=== PATIENT | female | born 1970 | race African-American/Black ===

== ENCOUNTER 2019-01-17 17:27 | Inpatient (IN) | payer OTHER, MEDICAID ==
[~2019-01-17] VITALS: Ht 160 cm; Wt 65.3 kg
[2019-01-17 17:27] VITALS: BP_SYST 156
--- NOTE | 2019-01-17 17:27 | NUR ---
BROUGHT IN BY [facility], PLACED IN BED #8 AND TRIAGED. REPORT GIVEN TO ESTIVEN
--- NOTE | 2019-01-17 17:38 | NUR ---
pt arrives from [facility] via [facility]. AAO x 3. Pt has c/o right sided CP. Barrie any SOB. EKG done and given to MD. Will continue to monitor.
--- NOTE | 2019-01-17 17:42 | NUR ---
Rosalie britton in ED - 01/17/19 at 1923 by SDNNICKI BECKY Turk at bedside examining patient.
--- NOTE | 2019-01-17 17:43 | NUR ---
BECKY Turk at bedside examining patient.
[2019-01-17] MEDS ORDERED: ASPIRIN 81 MG TAB.CHEW PO ONE (17:45)
--- NOTE | 2019-01-17 18:05 | NUR ---
# 20 gauge angiocath placed to the right breast. Use of asceptic technique. Opsite placed over site. Blood return noted. Blood for lab drawn from site. Flushed with 10 cc of normal saline. No evidence of infiltration noted. Patient tolerated well.
[2019-01-17 18:30] LABS: BASOPHILS # (AUTO) 0.1 K/uL (0.0-0.2); BASOPHILS % (AUTO) 0.9 % (0.0-2.0); EOSINOPHILS # (AUTO) 0.3 K/uL (0.0-0.4); EOSINOPHILS % (AUTO) 2.9 % (0.0-4.0); HEMATOCRIT 37.6 % (36-48); LYMPHOCYTES # (AUTO) 1.9 K/uL (1.0-5.5); LYMPHOCYTES % (AUTO) 20.3 % (20.5-51.5); MEAN CORPUSCULAR HEMOGLOBIN 29 pg (27-31); MEAN CORPUSCULAR HGB CONC 32 % (32-36); MEAN CORPUSCULAR VOLUME 89 fL (79.0-98.0); MONOCYTES # (AUTO) 0.7 K/uL (0.0-1.0); MONOCYTES % (AUTO) 7.9 % (1.7-9.3); NEUTROPHILS # (AUTO) 6.4 K/uL (1.8-7.7); PLATELET COUNT (AUTO) 361 K/uL (130-430); RED BLOOD CELL COUNT(AUTO) 4.22 MIL/uL (4.2-6.2); RED CELL DISTRIBUTION WIDTH 16.8 % (9.0-15.0); WHITE BLOOD COUNT (AUTO) 9.5 K/uL (4.8-10.8)
[2019-01-17 18:36] LABS: ANION GAP 13 (5-15); CHLORIDE 99 mmol/L (98-107); CREATININE 4.89 mg/dL (0.55-1.30); GLUCOSE 218 mg/dL (70-99); POTASSIUM 3.8 mmol/L (3.5-5.1); SODIUM SERUM 138 mmol/L (136-145); UREA NITROGEN, BLOOD 52 mg/dL (8-21)
[2019-01-17 18:42] LABS: GFR AFRICAN AMERICAN 12 mL/min (>90)
[2019-01-17 18:45] LABS: ALANINE AMINOTRANSFERASE 13 U/L (12-78); ALBUMIN 3.4 g/dL (3.4-4.8); ASPARTATE AMINOTRANSFERASE 10 U/L (10-37); TOTAL BILIRUBIN 0.2 mg/dL (0.0-1.0)
--- NOTE | 2019-01-17 18:49 | NUR ---
medicated the pt with Aspirin 325mg. Will reassess.
--- NOTE | 2019-01-17 19:15 | NUR ---
Care endorsed to Isai Childress. Pt is in stable condition.
[2019-01-17] MEDS ORDERED: MOM PO (19:37)
[2019-01-17] MEDS ORDERED: SENN8.6T19 PO (19:37)
[2019-01-17] MEDS ORDERED: RENA-VITE RX PO (19:37)
[2019-01-17] MEDS ORDERED: BISA-79 PO (19:37)
[2019-01-17] MEDS ORDERED: HYDR-4272 PO (19:37)
[2019-01-17] MEDS ORDERED: IPRA3AMP9 INH (19:37)
[2019-01-17] MEDS ORDERED: LEVE250T2 PO (19:37)
[2019-01-17] MEDS ORDERED: POLY119P15 PO (19:37)
[2019-01-17] MEDS ORDERED: APIX5TAB PO (19:37)
[2019-01-17] MEDS ORDERED: LIDOCAINE TP (19:37)
[2019-01-17] MEDS ORDERED: SSNOVOLOG SUBCUT ×2 (19:37)
[2019-01-17] MEDS ORDERED: DOCU-144 PO (19:37)
[2019-01-17] MEDS ORDERED: PRO40 PO (19:37)
[2019-01-17] MEDS ORDERED: AMLO5TAB4 PO (19:37)
[2019-01-17] MEDS ORDERED: ACET-2165 PO (19:37)
[2019-01-17] MEDS ORDERED: INSU100V11 SQ (19:37)
--- NOTE | 2019-01-17 19:38 | NUR ---
Medication reconciliation completed with information provided by [facility]. Any prior medication reconciliation on file was reviewed and corrected.
--- NOTE | 2019-01-17 19:44 | NUR ---
ER Dr. Shea at bedside examining patient.
--- NOTE | 2019-01-17 20:06 | NUR ---
PT mother, Bee, would like to be called for any change in pt status.
--- NOTE | 2019-01-17 20:42 | NUR ---
Patient will be admitted to care of Dr. Xavier. Admitted to telemetry unit. Will go to room 132. Belongings list completed. Summary report printed. Report will be given at bedside.
--- NOTE | 2019-01-17 21:21 | NUR ---
Transfer to 103A via ACLS protocol. Licensed nurse present. IV present no signs or symptoms of infiltration.
--- NOTE | 2019-01-17 21:23 | NUR ---
ADMISSION NOTE Received patient from ER via gurney. Patient admitted with diagnosis of CP r/o SC. Patient is awake, alert, oriented X 2. Patient oriented to hospital room, call light, toileting, pain management and safety-teach back done. Patient informed that KEYONA Lau will be primary nurse and that their room number is 103A. Personal belongings checked and Belongings List documented. Call light within reach.
[2019-01-17] MEDS ORDERED: INSULIN ASPART 100 UNITS/ML, 10 ML VIAL (NovoLOG) SUBCUT PRN (21:45)
[2019-01-17] MEDS ORDERED: ACETAMINOPHEN 325 MG TABLET PO PRN ×2 (21:45)
[2019-01-17] MEDS ORDERED: IPRATROPIUM/ALBUTEROL SULFATE 3 ML AMPUL.NEB (DUONEB) INH PRN (21:45)
[2019-01-17] MEDS ORDERED: MILK OF MAGNESIA 30 ML UDC PO PRN (21:45)
--- NOTE | 2019-01-17 22:19 | NUR ---
Dr Xavier in with orders and carried out, fixed and bed and made comfortable.
[2019-01-17 22:23] VITALS: BP_SYST 143
[2019-01-17 22:25] VITALS: BP_SYST 152
[2019-01-17] MEDS ORDERED: levETIRAcetam 500 MG TABLET PO SCH (22:30)
[2019-01-17] MEDS ORDERED: APIXABAN 2.5 MG TABLET PO SCH (23:00)
[2019-01-18 00:45] VITALS: BP_SYST 159
--- NOTE | 2019-01-18 02:16 | NUR ---
CONSULT: CONSULT CALLED FOR DR. MENDIOLA I SPOKE WITH ANTWAN BURNS REASON FOR CONSULT: CHEST PAIN REQUESTING CONSULT: DR. KOO PRODUCTION MAINTENANCE MECHANIC PHONE NUMBER: [phone]
--- NOTE | 2019-01-18 02:18 | NUR ---
CONSULT: CONSULT CALLED FOR FLAKO VALDEZ I SPOKE WITH ANTWAN BURNS REASON FOR CONSULT: ESRD REQUESTING CONSULT: DR. KOO RETURNED MATERIALS INSPECTOR PHONE NUMBER: [phone]
[2019-01-18 06:21] LABS: BASOPHILS # (AUTO) 0.1 K/uL (0.0-0.2); EOSINOPHILS # (AUTO) 0.3 K/uL (0.0-0.4); EOSINOPHILS % (AUTO) 4.6 % (0.0-4.0); HEMATOCRIT 33.8 % (36-48); HEMOGLOBIN 10.9 g/dL (12.0-16.0); LYMPHOCYTES # (AUTO) 1.6 K/uL (1.0-5.5); LYMPHOCYTES % (AUTO) 20.9 % (20.5-51.5); MEAN CORPUSCULAR HEMOGLOBIN 29 pg (27-31); MEAN CORPUSCULAR HGB CONC 32 % (32-36); MEAN CORPUSCULAR VOLUME 89 fL (79.0-98.0); MONOCYTES # (AUTO) 0.6 K/uL (0.0-1.0); MONOCYTES % (AUTO) 8.3 % (1.7-9.3); NEUTROPHILS # (AUTO) 4.8 K/uL (1.8-7.7); NEUTROPHILS % (AUTO) 65.2 % (40.0-70.0); PLATELET COUNT (AUTO) 340 K/uL (130-430); RED CELL DISTRIBUTION WIDTH 16.6 % (9.0-15.0); WHITE BLOOD COUNT (AUTO) 7.4 K/uL (4.8-10.8)
[2019-01-18 06:22] LABS: CALCIUM 10.6 mg/dL (8.4-11.0); CREATININE 4.91 mg/dL (0.55-1.30); POTASSIUM 3.8 mmol/L (3.5-5.1)
[2019-01-18] MEDS: INSULIN LISPRO SLIDING SCALE 100 UNITS/ML VIAL (humaLOG) SUBCUT PRN ×4 (06:37→21:11)
[2019-01-18 08:00] VITALS: BP_SYST 163
--- NOTE | 2019-01-18 08:00 | NUR ---
initial notes rec patient hob elevated with ivl on the r breast area intact. no infiltration noted. perma cath to the left upper chest intact. resp easy and unlabored. no sob noted. bed to the lowest position and side rails up and locked. call light within reached and knows when to call for assistance. will continue to monitor patient.
[2019-01-18] MEDS ORDERED: LIDOCAINE PATCH 5% 1 EA TP PRN (09:00)
[2019-01-18] MEDS: amLODIPine BESYLATE 5 MG TABLET PO SCH ×2 (09:00→21:08)
--- NOTE | 2019-01-18 09:13 | NUR ---
DR MENDIOLA ORDERED TO GET RECORDS FROM [facility] RE: OPEN HEART SURGERY 2017. H/P, DISC SUMMARY, OPERATIVE REPORT, CONSULTATIONS. SPOKE TO TAMY. FAXED REQUEST TO [phone].
[2019-01-18] MEDS: DOCUSATE SODIUM 100 MG CAPSULE PO SCH (09:14)
[2019-01-18] MEDS: PANTOPRAZOLE SODIUM 40 MG TAB PO SCH (09:15)
[2019-01-18] MEDS: NEPHROVITE, (FOLIC ACID/VITAMIN B COMP W-C 1 TAB) PO SCH (09:15)
[2019-01-18] MEDS: INSULIN GLARGINE 100 UNITS/ML 10 ML VIAL SUBCUT SCH (09:18)
[2019-01-18] MEDS: APIXABAN 2.5 MG TABLET PO SCH ×2 (09:21→21:11)
[2019-01-18] MEDS: BISACODYL 5 MG TABLET.DR (DULCOLAX) PO PRN (09:26)
--- NOTE | 2019-01-18 10:00 | NUR ---
rounds seen by dr angel. due meds given as ordered and lizbet well. awaiting for ct chest ti bed done and will have dialysis after. sleeps at intervals and call light within reached. denies pain.
--- NOTE | 2019-01-18 10:01 | NUR ---
Nutrition Update Steven Scale 13 noted. Pt admitted for chest pain r/o GA. Diet: renal BMI: 25.5 kg/m2 RD to follow per nutrition care standards.
[2019-01-18] MEDS: levETIRAcetam 500 MG TABLET PO SCH ×2 (11:56→21:08)
--- NOTE | 2019-01-18 12:00 | NUR ---
rounds seen by dr blanco . still awaiting for the cta chest to be done and dialysis after.
[2019-01-18 13:03] VITALS: BP_SYST 181
[2019-01-18] MEDS ORDERED: IOHEXOL 350 mgI/mL, 150 ML INFUS..BTL IV ONE (13:46)
--- NOTE | 2019-01-18 14:00 | NUR ---
rounds [facility] no sob noted. call light within reached.
[2019-01-18] MEDS ORDERED: GLUCOSE 15 GM GEL (in 37.5 GM TUBE) PO PRN (14:15)
[2019-01-18] MEDS ORDERED: D5W 1,000 ML IV PRN (14:15)
[2019-01-18] MEDS ORDERED: DEXTROSE 50%-WATER 50 ML DISP.SYRIN IVP PRN (14:15)
--- NOTE | 2019-01-18 16:00 | NUR ---
rounds sleeping soundly at this time. call light within reached. no sob noted.
[2019-01-18] MEDS: HYDROcodone/ACETAMIN 5-325 MG TAB (NORCO/ VICODIN) PO PRN (16:29)
--- NOTE | 2019-01-18 16:54 | NUR ---
Discharge Planning: DCP faxed pt referral to [facility] (f [phone] p [phone]) DCP to follow up.
[2019-01-18 17:00] VITALS: BP_SYST 162
--- NOTE | 2019-01-18 18:30 | NUR ---
late entry closing notes pt asleep and dialysis in progress. no sob noted. no hypo hyperglycemic reaction noted. bed to the lowest position and side rails up and locked. call light within reached.
--- NOTE | 2019-01-18 19:30 | NUR ---
PM ASSESSMENT REPORT RECEIVED FROM AM RN. PT RECEIVED IN BED, AAOX4 AND ABLE TO VERBALIZE NEEDS. DIALYSIS IS IN PROGRESS. VSS, NO S/S OF ACUTE DISTRESS NOTED. PT ON RA. ST ON MONITOR. L SUBCLAVIAN PERMACATH NOTED FOR DIALYSIS ACCESS. L BREAST 22G AND RAC 20G TO SL. PATENT AND INTACT. PT DENIES ANY PAIN OR DISCOMFORT AT THIS TIME. HOB ELEVATED, BED IN LOWEST POSITION, CALL LIGHT IN REACH. WILL CONTINUE TO MONITOR PT.
--- NOTE | 2019-01-18 19:40 | NUR ---
DIALYSIS COMPLETE DIALYSIS COMPLETED AT THIS TIME. 2500 CC FLUID REMOVED. PT TOLERATED WELL. WILL CONTINUE TO MONITOR.
[2019-01-18 20:00] VITALS: BP_SYST 133
[2019-01-18] MEDS ORDERED: SENNOSIDES 8.6 MG TABLET PO SCH (21:00)
[2019-01-19 00:14] VITALS: BP_SYST 133
--- NOTE | 2019-01-19 02:00 | NUR ---
RN ROUNDS PT RESTING COMFORTABLY IN BED WITH EYES CLOSED. BREATHING IS EVEN AND UNLABORED ON RA. NO S/S OF ACUTE DISTRESS NOTED. WILL CONTINUE TO MONITOR PT.
[2019-01-19] MEDS: INSULIN LISPRO SLIDING SCALE 100 UNITS/ML VIAL (humaLOG) SUBCUT PRN ×3 (06:15→18:27)
--- NOTE | 2019-01-19 07:30 | NUR ---
ENDORSEMENT BEDSIDE REPORT GIVEN TO NELLIE RN USING SBAR APPROACH.
[2019-01-19 08:00] VITALS: BP_SYST 151
--- NOTE | 2019-01-19 08:00 | NUR ---
initial notes rec patient awake alert and eating breakfast. ivl on the r arm and r breast area intact and no infiltration noted. denies pain. resp easy and unlabored. no sob noted. bed to the lowest position and side rails up and locked. call light within reached and knows when to call for assistance.
[2019-01-19] MEDS: PANTOPRAZOLE SODIUM 40 MG TAB PO SCH (10:05)
[2019-01-19] MEDS: levETIRAcetam 500 MG TABLET PO SCH (10:06)
[2019-01-19] MEDS: NEPHROVITE, (FOLIC ACID/VITAMIN B COMP W-C 1 TAB) PO SCH (10:06)
[2019-01-19] MEDS: BISACODYL 5 MG TABLET.DR (DULCOLAX) PO PRN (10:06)
[2019-01-19] MEDS: DOCUSATE SODIUM 100 MG CAPSULE PO SCH (10:07)
[2019-01-19] MEDS: amLODIPine BESYLATE 5 MG TABLET PO SCH (10:07)
[2019-01-19] MEDS: APIXABAN 2.5 MG TABLET PO SCH (10:08)
[2019-01-19] MEDS: INSULIN GLARGINE 100 UNITS/ML 10 ML VIAL SUBCUT SCH (10:10)
--- NOTE | 2019-01-19 10:18 | NUR ---
rounds due meds given and lizbet well. no sob noted. call light within reached.
--- NOTE | 2019-01-19 10:52 | NUR ---
Discharge Planning: DCP spoke with Crystal at [facility] (f [phone] p [phone]) pt accepted to [facility] order. Addendum: 01/19/19 at 1719 by Patricia Carrillo DP [facility] (f [phone] p [phone]) [facility], transportation with [facility] ([phone]) 7:00pm P/U patient packet taken to nurse station.
[2019-01-19 12:00] VITALS: BP_SYST 139
--- NOTE | 2019-01-19 12:36 | NUR ---
rounds no hypo hyperglycemic reaction noted. had a large amount of pasty stool . was cleaned and keep patient dry. no sob noted. call light within reached.
--- NOTE | 2019-01-19 13:48 | NUR ---
DC Planning: the discharge is pending dr. Xavier verifying before discharge, with renal md regarding CT note : Left-sided dialysis catheter with tip in the right atrium/IVC junction. The significance of this should be correlated clinically.
[2019-01-19] MEDS: HYDROcodone/ACETAMIN 5-325 MG TAB (NORCO/ VICODIN) PO PRN (16:43)
[2019-01-19 16:48] VITALS: BP_SYST 158
[2019-01-19 17:30] VITALS: BP_SYST 156
--- NOTE | 2019-01-19 19:20 | NUR ---
closing notes report given to nick at [facility]. pt's mother was notified re transfer to [facility]. no sob noted. denies pain. ivl on the r forearm and r breast were removed. no bleeding noted pressure dressing applied.
== END 2019-01-19 18:50 | DRG 313 ==
LOC: SED 17:27 → STU 20:20
PROVIDERS: ADMIT Internal Medicine; ATTEND Internal Medicine
DX: R07.89 Other chest pain (principal); N18.6 End stage renal disease; I12.0 Hypertensive chronic kidney disease with stage 5 chronic kidney disease or end stage renal disease; K21.9 Gastro-esophageal reflux disease without esophagitis; G40.909 Epilepsy, unspecified, not intractable, without status epilepticus; M19.90 Unspecified osteoarthritis, unspecified site; E10.22 Type 1 diabetes mellitus with diabetic chronic kidney disease; F20.9 Schizophrenia, unspecified; Z79.01 Long term (current) use of anticoagulants; Z79.4 Long term (current) use of insulin; Z81.8 Family history of other mental and behavioral disorders; Z82.49 Family history of ischemic heart disease and other diseases of the circulatory system; Z86.711 Personal history of pulmonary embolism; Z86.718 Personal history of other venous thrombosis and embolism; Z87.891 Personal history of nicotine dependence; Z98.891 History of uterine scar from previous surgery; Z99.2 Dependence on renal dialysis; Z88.0 Allergy status to penicillin; Z88.5 Allergy status to narcotic agent; Z86.73 Personal history of transient ischemic attack (TIA), and cerebral infarction without residual deficits
CPT/HCPCS: 36415; 71045; 71275; 80048; 80053; 82550-TC; 82962; 83880; 84484; 85025; 85379; 87081; 90935; 93005; 93306; 99285; G0378; J1815; Q9967